=== PATIENT | female | born 1980 ===

== ENCOUNTER 2021-06-13 10:57 | Outpatient (CLI) | payer OTHER, SELFPAY ==
[2021-06-13 12:01] LABS: SARS-CoV-2 RNA PCR Positive (Negative)
== END 2021-06-13 10:58 | disposition home or self-care (01) ==
LOC: CHSLAB 11:00
PROVIDERS: PCP Nurse Practitioner Family; Visit Provider Nurse Practitioner Family
DX: U07.1 COVID-19 (principal)
CPT/HCPCS: C9803; U0003; U0005